=== PATIENT | male | born 1960 | race Caucasian/White ===

== ENCOUNTER 2021-06-17 06:46 | Observation (INO) | payer BC, SELFPAY ==
[~2021-06-17] VITALS: Ht 180.3 cm; Wt 79.4 kg
[2021-06-17] VITALS (8 sets, daily range): BP systolic 93–136; BP diastolic 40–78
[2021-06-17 08:03] LABS: BASOPHILS % (AUTO) 0.7 % (0.0-5.0); EOSINOPHILS % (AUTO) 1.2 % (0.0-8.0); HEMATOCRIT 46.6 % (42-54); LYMPHOCYTES % (AUTO) 12.2 % (21.0-51.0); MEAN CORPUSCULAR HEMOGLOBIN 32.3 pg (27.0-33.0); MEAN CORPUSCULAR HGB CONC 33.5 g/dL (32.0-36.0); MEAN CORPUSCULAR VOLUME 96.5 fL (79-99); NEUTROPHILS % (AUTO) 73.8 % (40.0-77.0); PLATELET COUNT (AUTO) 206 K/uL (130-400); RED BLOOD CELL COUNT(AUTO) 4.83 MIL/uL (4.50-6.20); RED CELL DISTRIBUTION WIDTH 13.3 % (11.0-15.5); WHITE BLOOD COUNT (AUTO) 6.7 K/uL (4.8-10.8)
[2021-06-17 08:11] LABS: CREATININE 1.2 mg/dL (0.5-1.5); POTASSIUM 5.1 mmol/L (3.5-5.1)
[2021-06-17 08:15] LABS: ALBUMIN 3.8 g/dL (3.5-5.0); BILIRUBIN,TOTAL 2.2 mg/dL (0.2-1.0); TOTAL PROTEIN, SERUM 7.4 g/dL (6.0-8.3)
[2021-06-17] MEDS ORDERED: GLUCAGON 1MG KIT 1 MG ML IV SCH (09:00)
[2021-06-17] MEDS ORDERED: ACETAMINOPHEN 325 MG TAB PO PRN (09:30)
[2021-06-17] MEDS ORDERED: MORPHINE 2 MG SYG IVP PRN (09:30)
[2021-06-17] MEDS ORDERED: ONDANSETRON 4MG INJ IVP PRN (09:30)
[2021-06-17] MEDS ORDERED: MIDAZOLAM HCL 1 MG/ML 2ML VIAL ONE (11:39)
[2021-06-17] MEDS ORDERED: PROPOFOL 10 MG/ML 20ML VIAL IV ONE (11:39)
[2021-06-17] MEDS ORDERED: SUCCINYLCHOLINE CHLORIDE 20 MG/ML 10 ML VIAL ONE (11:39)
[2021-06-17] MEDS ORDERED: FENTANYL CITRATE PF 50 MCG/1 ML 2ML VIAL ONE (11:40)
[2021-06-17] MEDS ORDERED: SUCRALFATE 1 GM TABLET PO SCH (19:00)
[2021-06-17] MEDS ORDERED: PANTOPRAZOLE 40 MG TAB DR PO SCH (21:00)
== END 2021-06-17 20:00 | disposition left against medical advice (07) ==
LOC: EDH 06:46 → EDHIP 09:15
PROVIDERS: ADMIT Hospitalist; ATTEND Hospitalist
DX: T17.228A Food in pharynx causing other injury, initial encounter (principal); K22.10 Ulcer of esophagus without bleeding; K21.00 Gastro-esophageal reflux disease with esophagitis, without bleeding; K31.89 Other diseases of stomach and duodenum; Z79.82 Long term (current) use of aspirin; Z90.5 Acquired absence of kidney; Z53.29 Procedure and treatment not carried out because of patient's decision for other reasons; Z79.899 Other long term (current) drug therapy
CPT/HCPCS: 36415; 43239; 70490; 71045; 71250; 74150; 80053; 85025; 96374; 99284; A4215; A4222; A4223; A4606; A4657; G0378 ×9; J0330; J1610; J2250; J2704; J3010; J7030